=== PATIENT | male | born 1975 | race Two or more races ===

== ENCOUNTER 2016-10-31 07:41 | Emergency (ER) | payer MEDICAID ==
[~2016-10-31] VITALS: Ht 165.1 cm; Wt 89.8 kg
[2016-10-31 10:39] VITALS: BP 125/72
== END 2016-10-31 10:39 | disposition home or self-care (01) ==
LOC: ED 07:41
DX: L50.0 Allergic urticaria (principal)
CPT/HCPCS: J2930; J7030

== ENCOUNTER 2016-12-31 09:18 | Emergency (ER) | payer OTHER ==
[~2016-12-31] VITALS: Ht 165.1 cm; Wt 86.2 kg
[2016-12-31 11:51] VITALS: BP 105/69
== END 2016-12-31 11:51 | disposition home or self-care (01) ==
LOC: ED 09:18
DX: R21 Rash and other nonspecific skin eruption (principal); Z91.018 Allergy to other foods; Z88.8 Allergy status to other drugs, medicaments and biological substances
CPT/HCPCS: J0171; J2930; J3490; J7030

== ENCOUNTER 2017-06-28 20:21 | Emergency (ER) | payer OTHER ==
[~2017-06-28] VITALS: Ht 165.1 cm; Wt 96.2 kg
[2017-06-28 20:26] VITALS: Ht 165.1 cm; Wt 96.2 kg
[2017-06-29] LABS: BASOPHIL % 0.4 % (0-2); PLATELET COUNT 194 x10^3mcL (130-400); RED CELL DISTRIBUTION WIDTH 13.8 % (11.5-14.5)
[2017-06-29 00:16] LABS: CARBON DIOXIDE 31.7 mmol/L (21-32); CHLORIDE SERUM 105 mmol/L (98-107); GFR1 > 60 mL/min; GLUCOSE SERUM 132 mg/dL (74-106); POTASSIUM SERUM 3.9 mmol/L (3.5-5.1); SODIUM SERUM 140 mmol/L (136-145)
[2017-06-29 00:21] LABS: ALBUMIN 3.9 g/dL (3.4-5.0); ALKALINE PHOSPHATASE 86 U/L (46-116); ALT/SGPT 52 U/L (16-63); AST/SGOT 41 U/L (15-37); BILIRUBIN TOTAL 0.7 mg/dL (0.20-1.00); MAGNESIUM 2.1 mg/dL (1.8-2.4); TOTAL PROTEIN, SERUM 7.4 g/dL (6.4-8.2)
[2017-06-29 01:27] VITALS: BP 119/84
== END 2017-06-29 01:27 | disposition home or self-care (01) ==
LOC: ED 20:21
PROVIDERS: Emergency Medicine
DX: R42 Dizziness and giddiness (principal); R53.1 Weakness; Z88.8 Allergy status to other drugs, medicaments and biological substances; Z91.011 Allergy to milk products
CPT/HCPCS: 36415; J7512; Q0163